=== PATIENT | female | born 1970 | race African-American/Black ===

== ENCOUNTER 2017-06-06 12:28 | Emergency (ER) | payer OTHER ==
[2017-06-06 13:02] VITALS: BP 117/75; PULSE 111; RESP 18; TEMP 98.9
--- NOTE | 2017-06-06 13:22 | ED ---
Skin/Abscess/FB HPI - General Chief complaint: Skin/Abscess/Foreign Body Stated complaint: Abscess on Lip Time Seen by Provider: 06/06/17 13:06 Source: patient Mode of arrival: ambulatory Limitations: physical limitation - History of Present Illness Initial comments: 46-year-old female patient presents to the emergency department today for evaluation of a lesion to her lip. The patient states that this started yesterday. States it is tingling around the area. States that this is generally how her oral herpes infection starts. States she is usually treated with acyclovir and Bactroban ointment and it takes care of the infection. She denies any fever or chills. Denies any drainage from the lesion. Denies any sores elsewhere. Patient denies any recent shortness breath, chest pain, abdominal pain, nausea, vomiting, diarrhea, constipation, back pain, numbness, tingling, dizziness, weakness, hematuria, dysuria, urinary urgency, urinary frequency, headache, visual changes, or any other complaints. - Related Data Home Medications Medication Instructions Recorded Confirmed ALPRAZolam [Xanax] 1 mg PO Q8HR 06/09/14 06/09/14 Lisinopril [Zestril] 10 mg PO DAILY 06/09/14 06/09/14 traZODone HCL [Desyrel] 50 mg PO HS 06/09/14 06/09/14 Previous Rx's Medication Instructions Recorded Acyclovir 400 mg PO TID #21 tablet 06/06/17 Mupirocin 2% Oint [Bactroban 2% 1 applic TOPICAL BID #22 gm 06/06/17 Oint] Allergies Allergy/AdvReac Type Severity Reaction Status Date / Time Penicillins Allergy Anaphylaxis Verified 06/09/14 13:48 Sulfa (Sulfonamide Allergy Rash/Hives Verified 06/09/14 13:48 Antibiotics) Review of Systems ROS Statement: Those systems with pertinent positive or pertinent negative responses have been documented in the HPI. ROS Other: All systems not noted in ROS Statement are negative. Past Medical History Past Medical History: Asthma Additional Past Medical History / Comment(s): back problems History of Any Multi-Drug Resistant Organisms: None Reported Additional Past Surgical History / Comment(s): hiatal hernia repain Past Psychological History: Anxiety Smoking Status: Never smoker Past Alcohol Use History: Rare Past Drug Use History: None Reported General Exam Limitations: physical limitation General appearance: alert, in no apparent distress, other (Social well-developed , well-nourished adult female patient in no acute distress. Vital signs upon presentation are temperature 98.9F, pulse 111, respirations 18, blood pressure 117/75, pulse ox 99% on room air.) Eye exam: Present: normal appearance, PERRL, EOMI. Absent: scleral icterus, conjunctival injection, periorbital swelling ENT exam: Present: normal oropharynx, mucous membranes moist, other (Patient has small white blister to the left lower lip. No surrounding erythema, no drainage.) Respiratory exam: Present: normal lung sounds bilaterally. Absent: respiratory distress, wheezes, rales, rhonchi, stridor Cardiovascular Exam: Present: normal rhythm, tachycardia, normal heart sounds. Absent: systolic murmur, diastolic murmur, rubs, gallop, clicks Neurological exam: Present: alert, oriented X3, CN II-XII intact Psychiatric exam: Present: normal affect, normal mood Skin exam: Present: warm, dry, intact, normal color. Absent: rash Course Vital Signs 06/06/17 12:57 Temperature 98.9 F Pulse Rate 111 H Respiratory 18 Rate Blood Pressure 117/75 O2 Sat by Pulse 99 Oximetry Medical Decision Making - Medical Decision Making 46-year-old female patient presents to the emergency department today for evaluation of a lesion to her left lower lip. Patient reports that this is generally how her herpes infection starts. She is reporting tingling around the area. Physical examination does reveal a small white blister to the left lower lip. Patient is mildly tachycardic at triage however reports that she did just drink a monster before coming in and this generally brings her heart rate up a bit. She denies any chest pain, shortness of breath, nausea, or vomiting. We'll discharge her home with a prescription for acyclovir. She reports that she always applies Bactroban ointment and it works very well. We' ll give her prescription for this as well to use if the area becomes inflamed. Return parameters discussed in detail. She is instructed to follow-up with her primary care physician for recheck in 1-2 days. She verbalizes understanding and agrees with this plan. Disposition Clinical Impression: Herpes simplex Disposition: HOME SELF-CARE Condition: Good Instructions: Oral Herpes Simplex Virus Infections (ED) Additional Instructions: Take medicine as directed. Follow-up with your primary care physician for recheck in 1-2 days. Return here immediately for any new, worsening, or concerning symptoms. Prescriptions: Acyclovir 400 mg PO TID #21 tablet Mupirocin 2% Oint [Bactroban 2% Oint] 1 applic TOPICAL BID #22 gm Referrals: Lul Ford DO [Primary Care Provider] - 1-2 days Time of Disposition: 13:22
== END 2017-06-06 13:34 | disposition home or self-care (01) ==
LOC: EC 12:28
DX: B00.9 Herpesviral infection, unspecified (principal); R00.0 Tachycardia, unspecified; F41.9 Anxiety disorder, unspecified; Z79.899 Other long term (current) drug therapy; Z88.0 Allergy status to penicillin; Z88.2 Allergy status to sulfonamides
CPT/HCPCS: 99282

== ENCOUNTER 2017-07-24 10:13 | Emergency (ER) | payer OTHER ==
[2017-07-24 10:48] VITALS: BP 146/89; PULSE 81; RESP 18; TEMP 99.4
[2017-07-24] MEDS ORDERED: DIPH,PERTUS(ACELL)TETVAC-LF 0.5 ML VIAL IM ONE (11:04)
--- NOTE | 2017-07-24 11:08 | ED ---
Wound/Laceration HPI - General Chief Complaint: Wound/Laceration Stated Complaint: rt hand lac Time Seen by Provider: 07/24/17 10:55 Source: patient, RN notes reviewed, old records reviewed Mode of arrival: ambulatory Limitations: no limitations - History of Present Illness Initial Comments: Patient's a 46-year-old female presents emergency department today chief complaint of right hand laceration. She was walking through her workplace and she hit her hand on the back of a table. She has a 2 cm laceration over that dorsum of the hand between the second and third metacarpals. Patient reports that she has no pain with range of motion of her hand. She does not know for tetanus shot is up-to-date. She would like to have her tetanus status today.Patient denies any recent fever, chills, shortness of breath, chest pain, back pain, abdominal pain, nausea vomiting, numbness or tingling, dysuria or hematuria, constipation or diarrhea, headaches or visual changes, or any other current symptoms - Related Data Home Medications Medication Instructions Recorded Confirmed ALPRAZolam [Xanax] 1 mg PO Q8HR PRN 06/09/07/24/17 Albuterol Nebulized [Ventolin 2.5 mg INHALATION RT-Q6H PRN 07/24/17 07/24/17 Nebulized] Hydrocodone/Acetaminophen [[place] 1 tab PO QID PRN 07/24/17 07/24/17 10-325] Ibuprofen [Motrin] 800 mg PO TID PRN 07/24/17 07/24/17 Lisinopril-Hctz 20-25 mg 1 tab PO DAILY 07/24/17 07/24/17 [Zestoretic 20-25] Melatonin 1 mg PO HS 07/24/17 07/24/17 Multivitamins, Thera [Multivitamin 1 tab PO DAILY 07/24/17 07/24/17 (formulary)] Allergies Allergy/AdvReac Type Severity Reaction Status Date / Time Penicillins Allergy Anaphylaxis Verified 07/24/17 10:59 Sulfa (Sulfonamide Allergy Rash/Hives Verified 07/24/17 10:59 Antibiotics) Review of Systems ROS Statement: Those systems with pertinent positive or pertinent negative responses have been documented in the HPI. ROS Other: All systems not noted in ROS Statement are negative. Past Medical History Past Medical History: Asthma Additional Past Medical History / Comment(s): back problems History of Any Multi-Drug Resistant Organisms: None Reported Additional Past Surgical History / Comment(s): hiatal hernia repain Past Psychological History: Anxiety Smoking Status: Never smoker Past Alcohol Use History: Rare Past Drug Use History: None Reported General Exam - General Exam Comments Initial Comments: 46-year-old female. No distress. Limitations: no limitations General appearance: alert, in no apparent distress Head exam: Present: atraumatic, normocephalic, normal inspection Eye exam: Present: normal appearance, PERRL, EOMI. Absent: scleral icterus, conjunctival injection, periorbital swelling ENT exam: Present: normal exam, mucous membranes moist Neck exam: Present: normal inspection. Absent: tenderness, meningismus, lymphadenopathy Respiratory exam: Present: normal lung sounds bilaterally. Absent: respiratory distress, wheezes, rales, rhonchi, stridor Cardiovascular Exam: Present: regular rate, normal rhythm, normal heart sounds. Absent: systolic murmur, diastolic murmur, rubs, gallop, clicks GI/Abdominal exam: Present: soft, normal bowel sounds. Absent: distended, tenderness, guarding, rebound, rigid Extremities exam: Present: normal inspection, full ROM, normal capillary refill. Absent: tenderness, pedal edema, joint swelling, calf tenderness Right Elbow exam: Present: normal inspection Forearm Wrist exam: Present: normal inspection, full ROM Hand Wrist exam: Present: full ROM, laceration (2 cm laceration over the dorsum of the right hand. The laceration is any V-shaped.). Absent: normal inspection , tenderness, swelling Back exam: Present: normal inspection Neurological exam: Present: alert, oriented X3, CN II-XII intact Psychiatric exam: Present: normal affect, normal mood Skin exam: Present: warm, dry, intact, normal color. Absent: rash Course Vital Signs 07/24/17 10:45 Temperature 99.4 F Pulse Rate 81 Respiratory 18 Rate Blood Pressure 146/89 O2 Sat by Pulse 98 Oximetry Procedures - Laceration Laceration #1 Site: hand (Right hand) Size (cm): 2 Description: flap Depth: simple, single layer Anesthetic Used: lidocaine 1% Anesthesia Technique: local infiltration Amount (mls): 2 Pre-repair: wound explored, irrigated extensively Type of Sutures: nylon Size of Sutures: 5-0 Number of Sutures: 2 Technique: simple, interrupted Patient Tolerated Procedure: well, no complications Medical Decision Making - Medical Decision Making 46-year-old female to plan of right hand laceration. She cut it when she was at work. Laceration is a flap formation and measures proximal when 2 sutures. Wound is thoroughly irrigated and cleansed with iodine. She was anesthetized and closed with 2 sutures. Discussed suture care instructions monitoring for infection. She was given her updated tetanus shot. Patient is history plan will comply. Disposition Clinical Impression: Laceration of right hand Disposition: HOME SELF-CARE Condition: Good Instructions: Care For Your Stitches (ED) Additional Instructions: Please return to the emergency room in 7 days to have sutures removed. Please leave wound covered for the first 24-48 hours and then leave open to air after that time. Please use clean soap and water to clean the suture area to prevent scabbing over the top of your sutures. Please watch for any signs of infection which may include but not limited to increased pain, swelling, redness, fever or chills. Please return to the emergency room if any signs of infection do occur. Please return to the emergency room for any other concerns or complications. Is patient prescribed a controlled substance at discharge?: No If prescribed controlled substance>3 days was MAPS reviewed?: No When asked, does pt state using other controlled substances?: No Referrals: Lul Ford DO [Primary Care Provider] - 1-2 days Time of Disposition: 11:07
== END 2017-07-24 12:03 | disposition home or self-care (01) ==
LOC: EC 10:13
DX: S61.411A Laceration without foreign body of right hand, initial encounter (principal); Z79.899 Other long term (current) drug therapy; Z88.0 Allergy status to penicillin; Z88.2 Allergy status to sulfonamides; Z23 Encounter for immunization; W22.8XXA Striking against or struck by other objects, initial encounter; Y93.01 Activity, walking, marching and hiking; Y92.69 Other specified industrial and construction area as the place of occurrence of the external cause; Y99.0 Civilian activity done for income or pay
CPT/HCPCS: 12001; 90471; 90715; 99283

== ENCOUNTER 2018-07-15 18:50 | Emergency (ER) | payer OTHER ==
[2018-07-15 18:57] VITALS: BP 144/92; PULSE 112; RESP 18; TEMP 98.2
--- NOTE | 2018-07-15 19:14 | ED ---
Skin/Abscess/FB HPI - General Chief complaint: Skin/Abscess/Foreign Body Stated complaint: Rash Time Seen by Provider: 07/15/18 18:58 Source: patient Mode of arrival: ambulatory Limitations: no limitations - History of Present Illness Initial comments: 47-year-old female patient presents to the emergency department today for evaluation of a herpes lesion to her mouth and a concerning lesion to her genitalia. Patient states she was previously diagnosed with oral herpes simplex and became concerned when she developed a lesion to her right labia one week ago. Patient states the lesion to her labia is only painful when she touches it. She denies any drainage from the area. Denies any fevers or chills. Patient states that she has a new lesion to the mucosal so versus the lower lip. Patient has been applying a cream she was prescribed to her lip lesions but she can arm or the name of it. She is also reporting left lower dental pain. Patient states she's had dental infections in the past and this feels similar. Patient denies any recent rash, shortness breath, chest pain, abdominal pain, nausea, vomiting, diarrhea, constipation, back pain, numbness, tingling, dizziness, weakness, hematuria, dysuria, urinary urgency, urinary frequency, headache, visual changes, or any other complaints. - Related Data Home Medications Medication Instructions Recorded Confirmed ALPRAZolam [Xanax] 1 mg PO Q8HR PRN 06/09/14 07/24/17 Albuterol Nebulized [Ventolin 2.5 mg INHALATION RT-Q6H PRN 07/24/17 07/24/17 Nebulized] Hydrocodone/Acetaminophen [[place] 1 tab PO QID PRN 07/24/17 07/24/17 10-325] Ibuprofen [Motrin] 800 mg PO TID PRN 07/24/17 07/24/17 Lisinopril-Hctz 20-25 mg 1 tab PO DAILY 07/24/17 07/24/17 [Zestoretic 20-25] Melatonin 1 mg PO HS 07/24/17 07/24/17 Multivitamins, Thera [Multivitamin 1 tab PO DAILY 07/24/17 07/24/17 (formulary)] Previous Rx's Medication Instructions Recorded Acyclovir 400 mg PO TID 5 Days #15 tablet 07/15/18 Clindamycin HCl 300 mg PO Q6H #40 cap 07/15/18 Allergies Allergy/AdvReac Type Severity Reaction Status Date / Time Penicillins Allergy Anaphylaxis Verified 07/15/18 18:57 Sulfa (Sulfonamide Allergy Rash/Hives Verified 07/15/18 18:57 Antibiotics) Review of Systems ROS Statement: Those systems with pertinent positive or pertinent negative responses have been documented in the HPI. ROS Other: All systems not noted in ROS Statement are negative. Past Medical History Past Medical History: Asthma Additional Past Medical History / Comment(s): back problems History of Any Multi-Drug Resistant Organisms: None Reported Additional Past Surgical History / Comment(s): hiatal hernia repain Past Psychological History: Anxiety Smoking Status: Never smoker Past Alcohol Use History: Rare Past Drug Use History: None Reported General Exam Limitations: no limitations General appearance: alert, in no apparent distress, other (Physical well- developed, well-nourished adult female patient in no acute distress. Vital signs upon presentation are temperature 98.2F, pulse 112, respirations 18, blood pressure 144/92, pulse ox 100% on room air.) Eye exam: Present: normal appearance, PERRL, EOMI. Absent: scleral icterus, conjunctival injection, periorbital swelling ENT exam: Present: normal exam, mucous membranes moist, other (There is a small erythematous lesion noted to the mucosal surface of the right lower lip.) Respiratory exam: Present: normal lung sounds bilaterally. Absent: respiratory distress, wheezes, rales, rhonchi, stridor Cardiovascular Exam: Present: regular rate, normal rhythm, normal heart sounds. Absent: systolic murmur, diastolic murmur, rubs, gallop, clicks External exam: Present: other (There is a single brownish lesion noted to the right labia, appears consistent with healing ingrown hair.) Neurological exam: Present: alert, oriented X3, CN II-XII intact Psychiatric exam: Present: normal affect, normal mood Skin exam: Present: warm, dry, intact, normal color. Absent: rash Course Vital Signs 07/15/18 18:54 Temperature 98.2 F Pulse Rate 112 H Respiratory 18 Rate Blood Pressure 144/92 O2 Sat by Pulse 100 Oximetry Medical Decision Making - Medical Decision Making 47-year-old female patient presents to the emergency department today for evaluation of a lesion to her right lower lip, she does have history of oral herpes simplex is concerned she may be getting a flare. Patient is also concerned about a lesion to her right labia that has been present for the last week. Physical examination did reveal an erythematous lesion to the right lower lip on the mucosal surface, patient states this is however herpes lesions usually start. I did evaluate the genitalia and did reveal a lesion consistent with a healing ingrown hair, not consistent with herpes. She will be given a prescription for acyclovir for her oral flare. She is instructed continue using her cream instructed. She is also complaining of left lower dental pain, see no evidence of drainable abscess. She'll be given a prescription for clindamycin for this and instructed to follow-up with dentistry. She struck to follow-up with her primary care physician for recheck in 1-2 days. Return parameters were discussed in detail patient verbalizes understanding and agrees with this plan. Disposition Clinical Impression: Oral herpes simplex infection, Dental infection Disposition: HOME SELF-CARE Condition: Good Instructions (If sedation given, give patient instructions): Oral Herpes Simplex Virus Infections (ED), Toothache (ED) Additional Instructions: Complete prescriptions and full. Follow-up with your primary care physician for recheck in 1-2 days. Return to the emergency department immediately for any new, worsening, or concerning symptoms. Prescriptions: Acyclovir 400 mg PO TID 5 Days #15 tablet Clindamycin HCl 300 mg PO Q6H #40 cap Is patient prescribed a controlled substance at d/c from ED?: No Referrals: Elena Ramsey MD [Primary Care Provider] - 1-2 days Time of Disposition: 19:14
== END 2018-07-15 19:35 | disposition home or self-care (01) ==
LOC: EC 18:50
DX: B00.89 Other herpesviral infection (principal); K04.7 Periapical abscess without sinus; J45.909 Unspecified asthma, uncomplicated; Z79.899 Other long term (current) drug therapy; Z88.0 Allergy status to penicillin; Z88.2 Allergy status to sulfonamides
CPT/HCPCS: 99282